=== PATIENT | female | born 1995 | race Caucasian/White ===

== ENCOUNTER 2016-09-21 03:22 | Emergency (ER) | payer SELFPAY ==
[2016-09-21 04:28] LABS: ABSOLUTE BASOPHILS # (AUTO) 0.1 10^3/uL (0.0-0.2); ABSOLUTE EOSINOPHILS # (AUTO) 1.4 10^3/uL (0.0-0.6); ABSOLUTE LYMPHOCYTES (AUTO) 3.1 10^3/uL (0.5-4.7); ABSOLUTE MONOCYTES (AUTO) 0.8 10^3/uL (0.1-1.4); ABSOLUTE NEUT (AUTO) 7.6 10^3/uL (1.7-8.2); BASOPHILS % (AUTO) 0.5 % (0-2); EOSINOPHILS % (AUTO) 10.9 % (0-6); HEMATOCRIT 41.1 % (36.0-47.0); HEMOGLOBIN 13.7 g/dL (12.0-15.5); LYMPHOCYTES % (AUTO) 23.9 % (13-45); MEAN CORPUSCULAR HEMOGLOBIN 26.9 pg (27.0-33.4); MEAN CORPUSCULAR HGB CONC 33.3 g/dL (32.0-36.0); MEAN CORPUSCULAR VOLUME 81 fl (80-97); MONOCYTES % (AUTO) 6.3 % (3-13); RED BLOOD COUNT 5.09 10^6/uL (3.72-5.28); RED CELL DISTRIBUTION WIDTH 13.7 % (11.5-14.0); SEGMENTED NEUTROPHILS % (AUTO) 58.4 % (42-78); WHITE BLOOD COUNT 12.9 10^3/uL (4.0-10.5)
[2016-09-21 04:35] LABS: APPEARANCE,URINE CLOUDY; BILIRUBIN,URINE NEGATIVE (NEGATIVE); GLUCOSE, URINE NEGATIVE (NEGATIVE); KETONES,URINE NEGATIVE (NEGATIVE); LEUKOCYTE ESTERASE,URINE LARGE (NEGATIVE); NITRITE,URINE NEGATIVE (NEGATIVE); PROTEIN,URINE 30 mg/dL (NEGATIVE); UROBILINOGEN,URINE NEGATIVE mg/dL (<2.0)
[2016-09-21 04:37] LABS: ALANINE AMINOTRANSFERASE 35 U/L (5-35); ALBUMIN 4.1 g/dL (3.7-5.6); ALKALINE PHOSPHATASE 87 U/L (50-135); ANION GAP 14 (5-19); ASPARTATE AMINO TRANSFERASE 26 U/L (5-30); BILIRUBIN,DIRECT 0.3 mg/dL (0.0-0.4); BILIRUBIN,TOTAL 0.4 mg/dL (0.2-1.3); BLOOD UREA NITROGEN 17 mg/dL (7-20); CALCIUM 9.8 mg/dL (8.4-10.2); CARBON DIOXIDE 23 mmol/L (22-30); CHLORIDE 108 mmol/L (98-107); CREATININE RESULT 0.93 mg/dL (0.52-1.25); GLUCOSE 90 mg/dL (75-110); POTASSIUM 4.1 mmol/L (3.6-5.0); SODIUM 145.4 mmol/L (137-145); TOTAL PROTEIN 7.1 g/dL (6.3-8.2)
--- NOTE | 2016-09-21 05:36 | ER Document Report ---
ED GI/ - General Chief Complaint: Vaginal Bleeding Stated Complaint: VAGINAL PAIN AND BLEEDING Notes: The patient is a 20-year-old female who presents with 1 day of vaginal bleeding and clots with dysuria. She received her Depo shot one month ago. Her roommate had a miscarriage and she is concerned that she is having a miscarriage. She has not had a positive test yet. She denies nausea , vomiting, current bleeding, fevers, diarrhea or constipation. TRAVEL OUTSIDE OF THE [place] IN LAST 30 DAYS: No - Related Data Allergies/Adverse Reactions: No Known Allergies Allergy (Verified 12/21/15 18:34) Past Medical History - General Information source: Patient Last Menstrual Period: 07-27-16 - Social History Smoking Status: Unknown if Ever Smoked Family History: CAD, DM, Hyperlipidemia, Hypertension, Malignancy Patient has suicidal ideation: No Patient has homicidal ideation: No - Past Medical History Cardiac Medical History: Denies: Hx Congestive Heart Failure, Hx Hypertension, Hx Heart Murmur Pulmonary Medical History: Reports: Hx Asthma Renal/ Medical History: Denies: Hx Peritoneal Dialysis Past Surgical History: Denies: Hx Cardiac Catheterization, Hx Pacemaker, Hx Valve Replacement, Hx Vascular Surgery - Immunizations Immunizations up to date: Yes Hx Diphtheria, Pertussis, Tetanus Vaccination: Yes Review of Systems - Review of Systems Notes: REVIEW OF SYSTEMS: CONSTITUTIONAL: -fevers, -chills EENT: -eye pain, -difficulty swallowing, -nasal congestion CARDIOVASCULAR:-chest pain, -syncope. RESPIRATORY: -cough, -SOB GASTROINTESTINAL: -abdominal pain, -nausea, -vomiting, -diarrhea GENITOURINARY: +dysuria, -hematuria, +vaginal bleeding MUSCULOSKELETAL: -back pain, -neck pain SKIN: -rash or skin lesions. HEMATOLOGIC: -easy bruising or bleeding. LYMPHATIC: -swollen, enlarged glands. NEUROLOGICAL: -altered mental status or loss of consciousness, -headache, - neurologic symptoms PSYCHIATRIC: -anxiety, -depression. ALL OTHER SYSTEMS REVIEWED AND NEGATIVE. Physical Exam - Vital signs Vitals: Temp Pulse Resp BP Pulse Ox 97.8 F 82 22 134/82 H 98 09/21/16 03:34 09/21/16 03:34 09/21/16 03:34 09/21/16 03:34 09/21/16 03:34 - Notes Notes: PHYSICAL EXAMINATION: GENERAL: Well-appearing, well-nourished and in no acute distress. HEAD: Atraumatic, normocephalic. EYES: Pupils equal round and reactive to light, extraocular movements intact, sclera anicteric, conjunctiva are normal. ENT: nares patent, oropharynx clear without exudates. Moist mucous membranes. NECK: Normal range of motion, supple without lymphadenopathy LUNGS: Breath sounds clear to auscultation bilaterally and equal. No wheezes rales or rhonchi. HEART: Regular rate and rhythm without murmurs ABDOMEN: Soft, nontender, normoactive bowel sounds. No guarding, no rebound. No masses appreciated. EXTREMITIES: Normal range of motion, no pitting or edema. No cyanosis. NEUROLOGICAL: Cranial nerves grossly intact. Normal speech, normal gait. Normal sensory, motor, and reflex exams. PSYCH: Normal mood, normal affect. SKIN: Warm, Dry, normal turgor, no rashes or lesions noted. Course - Re-evaluation Re-evalutation: Patient is not . She does have evidence of UTI and we'll treat with Macrobid. No evidence of pyelonephritis and she appears well. Told her to follow-up with her recruiting intern. - Vital Signs Vital signs: Temp Pulse Resp BP Pulse Ox 98 F 84 18 140/77 H 98 09/21/16 05:35 09/21/16 05:35 09/21/16 05:35 09/21/16 05:35 09/21/16 05:35 - Laboratory Result Diagrams: 09/21/16 03:35 09/21/16 03:35 Laboratory results interpreted by me: 09/21/16 09/21/16 09/21/16 03:35 03:35 04:00 WBC 12.9 H MCH 26.9 L Eosinophils % 10.9 H Absolute Eosinophils 1.4 H Sodium 145.4 H Chloride 108 H Urine Protein 30 H Urine Blood LARGE H Ur Leukocyte Esterase LARGE H Discharge - Discharge Clinical Impression: UTI (urinary tract infection) Qualifiers: Urinary tract infection type: site unspecified Hematuria presence: with hematuria Qualified Code(s): N39.0 - Urinary tract infection, site not specified Condition: Good Disposition: HOME, SELF-CARE Additional Instructions: URINARY TRACT INFECTION: Your evaluation indicates that you have a urinary tract infection. This is due to germs growing in the bladder. This is a common problem. This infection usually responds quickly to antibiotics. Your antibiotic should be taken exactly as prescribed. Drink plenty of fluids -- three to four quarts a day. Occasionally, a bladder anesthetic will be prescribed to help stop the feeling of urgency until the antibiotic has a chance to clear the infection. This may cause your urine to be dark orange. Certain urine infections require a culture. If the doctor obtained a culture, the results will be back in two days. You should call to see if a change in treatment is needed. A repeat urinalysis after you finish treatment is often recommended. The physician will let you know if further testing is required. Call the doctor if you develop fever, chills, flank pain, inability to urinate, or blood in the urine. ANTIBIOTIC THERAPY: You have been given an antibiotic prescription. It's important that you take all the medication, unless instructed otherwise by your physician. Failure to complete the entire course can result in relapse of your condition. Common side effects of antibiotics include nausea, intestinal cramping, or diarrhea. Women may develop vaginal yeast infections, and babies can get yeast (thrush) in the mouth following the use of antibiotics. Contact your physician if you develop significant side effects from this medication. Allergy to this antibiotic can result in hives, wheezing, faintness, or itching. If symptoms of allergy occur, stop the medication and call the doctor. NITROFURANTOIN (MACRODANTIN, MACROBID): You have received a prescription for nitrofurantoin (Macrodantin). This antibiotic is used for urinary tract infections. Women who are or nursing should notify the physician before taking this medicine. If you have ever had a problem caused by this medication in the past, be sure the physician is aware of it. Common side effects of this medicine include nausea, vomiting, or decreased appetite. Notify your physician if these side effects become severe. Immediately stop this medicine and call the physician if you develop cough , shortness of breath, chest pain, weakness, jaundice (yellow color of the skin and whites of the eyes), or a skin rash. FOLLOW-UP CARE: If you have been referred to a physician for follow-up care, call the physician s office for an appointment as you were instructed or within the next two days. If you experience worsening or a significant change in your symptoms, notify the physician immediately or return to the Emergency Department at any time for re-evaluation. Prescriptions: Nitrofurantoin/Nitrofuran Mac [Macrobid 100 mg Capsule] 1 tab PO BID #10 capsule Referrals: SAYDA DE JESUS MD [ACTIVE STAFF] - Follow up as needed
[2016-09-21 05:37] VITALS: BP 140/77
== END 2016-09-21 05:41 | disposition home or self-care (01) ==
LOC: ER 03:22
DX: N39.0 Urinary tract infection, site not specified (principal); R31.9 Hematuria, unspecified
CPT/HCPCS: 36415; 80053; 81001; 84703; 85025; 99283

== ENCOUNTER 2017-12-28 17:30 | Emergency (ER) | payer SELFPAY ==
[2017-12-28 17:35] VITALS: BP 131/67
--- NOTE | 2017-12-28 18:02 | ER Document Report ---
HPI - HPI Patient complains to provider of: Twisted left ankle Onset: Yesterday - P.m. Pain Level: 5 Context: 22-year-old drank too much last night and does not remember twisting her left ankle. It hurts the medial and lateral list. She can move it though. No previous injury. Associated Symptoms: None Exacerbated by: Movement, Walking Relieved by: Denies Similar symptoms previously: No Recently seen / treated by doctor: No - ROS ROS below otherwise negative: Yes Systems Reviewed and Negative: Yes All other systems reviewed and negative - REPRODUCTIVE Reproductive: DENIES: : - MUSCULOSKELETAL Musculoskeletal: REPORTS: Extremity pain Past Medical History - General Information source: Patient - Social History Smoking Status: Never Smoker Frequency of alcohol use: None Drug Abuse: None Lives with: Family Family History: CAD, DM, Hyperlipidemia, Hypertension, Malignancy Patient has suicidal ideation: No Patient has homicidal ideation: No Pulmonary Medical History: Reports: Hx Asthma Surgical Hx: Negative - Immunizations Immunizations up to date: Yes Hx Diphtheria, Pertussis, Tetanus Vaccination: Yes Vertical Provider Document - CONSTITUTIONAL Agree With Documented VS: Yes Exam Limitations: No Limitations - INFECTION CONTROL TRAVEL OUTSIDE OF THE [place] IN LAST 30 DAYS: No - MUSCULOSKELETAL/EXTREMETIES Musculoskeletal/Extremeties: MAEW, FROM, Tender - Medial and lateral malleolus, Edema Notes: 2+ DP - NEURO Level of Consciousness: Alert Motor/Sensory: No Motor Deficit, No Sensory Deficit - DERM Integumentary: No Rash Course - Re-evaluation Re-evalutation: 12/28/17 18:43 X-rays negative per radiologist, Velcro ankle splint and crutches. I will treat with Tylenol Motrin orthopedic follow-up if she needs it. - Vital Signs Vital signs: Temp Pulse Resp BP Pulse Ox 98.1 F 81 18 131/67 H 99 12/28/17 17:34 12/28/17 17:34 12/28/17 17:34 12/28/17 17:34 12/28/17 17:34 Procedures - Immobilization Left Ankle Time completed: 18:46 Pre-Proc Neuro Vasc Exam: Normal Immobilizer type: Ankle stirrup, Crutches Performed by: PCT Post-Proc Neuro Vasc Exam: Normal Alignment checked and good: Yes Discharge - Discharge Clinical Impression: Left ankle sprain Qualifiers: Encounter type: initial encounter Involved ligament of ankle: unspecified ligament Qualified Code(s): S93.402A - Sprain of unspecified ligament of left ankle, initial encounter Condition: Good Disposition: HOME, SELF-CARE Instructions: Sprained Ankle ([facility]), Ice Packs ([facility]), Ankle Stirrup Splint ([facility]) , Use of Crutches ([facility]), Acetaminophen, Ibuprofen (General) ([facility]) Additional Instructions: Ice and elevate Splint with a secure sneaker Crutches for nonweightbearing for several days Copy of negative imaging report given to you Follow-up with orthopedics if he continued to have a problem with his ankle Prescriptions: Ibuprofen [Motrin 600 mg Tablet] 600 mg PO Q8HP PRN #30 tablet PRN Reason: Referrals: LOLLY FELDER MD [ACTIVE STAFF] - Follow up as needed
--- NOTE | 2017-12-28 18:34 | RADIOLOGY REPORT (SQ) ---
EXAM DESCRIPTION: ANKLE LEFT COMPLETE COMPLETED DATE/TIME: 12/28/2017 6:26 pm REASON FOR STUDY: injured last night COMPARISON: None. NUMBER OF VIEWS: Three views. TECHNIQUE: AP, lateral, and oblique radiographic images acquired of the left ankle. LIMITATIONS: None. FINDINGS: MINERALIZATION: Normal. BONES: No acute fracture or dislocation. No worrisome bone lesions. JOINTS: No effusions. SOFT TISSUES: Mild lateral soft tissue swelling. OTHER: No other significant finding. IMPRESSION: Mild soft tissue swelling. No fracture. TECHNICAL DOCUMENTATION: JOB ID: [id number] [employer]- All Rights Reserved Reading location - IP/workstation name: [email or web address]
== END 2017-12-28 19:02 | disposition home or self-care (01) ==
LOC: ER 17:30
DX: S93.402A Sprain of unspecified ligament of left ankle, initial encounter (principal); X58.XXXA Exposure to other specified factors, initial encounter; J45.909 Unspecified asthma, uncomplicated
CPT/HCPCS: 99283; 73610; L1902

== ENCOUNTER 2018-06-14 17:12 | Emergency (ER) | payer SELFPAY ==
[2018-06-14] MEDS ORDERED: PSEUDOEPHEDRINE HCL 30 MG TABLET PO ONE (18:23)
[2018-06-14] MEDS ORDERED: IBUPROFEN 800 MG TABLET PO ONE (18:24)
--- NOTE | 2018-06-14 18:32 | ER Document Report ---
HPI - HPI Time Seen by Provider: 06/14/18 18:00 Onset/Duration: Gradual, Persistent Quality of pain: Achy Pain Level: 5 Context: Patient presents complaining of cough, sore throat and congestion for the past 3 days. Patient denies any fever. Patient denies any recent sick contacts. Patient complains of sinus pressure and congestion Associated Symptoms: Nonproductive cough, Rhinnorhea, Sinus pain/drainage, Sore throat. denies: Earache, Fever Exacerbated by: Denies Relieved by: Denies Similar symptoms previously: Yes Recently seen / treated by doctor: No - ROS ROS below otherwise negative: Yes Systems Reviewed and Negative: Yes All other systems reviewed and negative - CONSTITUTIONAL Constitutional: DENIES: Chills - EENT EENT: REPORTS: Sore Throat, Nasal Drainage-Clear, Congestion - NEURO Neurology: REPORTS: Headache - RESPIRATORY Respiratory: REPORTS: Coughing - GASTROINTESTINAL Gastrointestinal: DENIES: Patient vomiting - REPRODUCTIVE Reproductive: DENIES: : - MUSCULOSKELETAL Musculoskeletal: DENIES: Back Pain, Neck Pain - DERM Skin Color: Normal Skin Problems: None Past Medical History - General Information source: Patient - Social History Smoking Status: Former Smoker Chew tobacco use (# tins/day): No Frequency of alcohol use: None Drug Abuse: None Occupation: Retail Lives with: Spouse/Significant other Family History: CAD, DM, Hyperlipidemia, Hypertension, Malignancy Patient has suicidal ideation: No Patient has homicidal ideation: No - Past Medical History Cardiac Medical History: Denies: Hx Congestive Heart Failure, Hx Hypertension, Hx Heart Murmur Pulmonary Medical History: Reports: Hx Asthma - proair Renal/ Medical History: Denies: Hx Peritoneal Dialysis Surgical Hx: Negative - Immunizations Immunizations up to date: Yes Hx Diphtheria, Pertussis, Tetanus Vaccination: Yes Vertical Provider Document - CONSTITUTIONAL Agree With Documented VS: Yes Exam Limitations: No Limitations General Appearance: WD/WN, No Apparent Distress - INFECTION CONTROL TRAVEL OUTSIDE OF THE [place] IN LAST 30 DAYS: No - HEENT HEENT: Atraumatic, Normocephalic, Pharyngeal Tenderness, Pharyngeal Erythema. negative: Pharyngeal Exudate, Tympanic Membrane Red, Tympanic Membrane Bulging Notes: Maxillary and frontal sinus pressure, no facial swelling - NECK Neck: Normal Inspection, Supple. negative: Lymphadenopathy-Left, Lymphadenopathy-Right - RESPIRATORY Respiratory: Breath Sounds Normal, No Respiratory Distress, Chest Non-Tender - CARDIOVASCULAR Cardiovascular: Regular Rate, Regular Rhythm, No Murmur - BACK Back: Normal Inspection - MUSCULOSKELETAL/EXTREMETIES Musculoskeletal/Extremeties: PASHA BARBOZA - NEURO Level of Consciousness: Awake, Alert, Appropriate Motor/Sensory: No Motor Deficit - DERM Integumentary: Warm, Dry, No Rash Course - Vital Signs Vital signs: Temp Pulse Resp BP Pulse Ox 98.4 F 98 16 130/75 H 97 06/14/18 17:21 06/14/18 17:21 06/14/18 17:21 06/14/18 17:21 06/14/18 17:21 - Laboratory Laboratory results interpreted by me: 06/14/18 20:37 Labs- Entire Visit 06/14/18 18:28 Group A Strep Rapid NEGATIVE Discharge - Discharge Clinical Impression: Sinus congestion, Sore throat Upper respiratory infection Qualifiers: URI type: unspecified URI Qualified Code(s): J06.9 - Acute upper respiratory infection, unspecified Condition: Stable Disposition: HOME, SELF-CARE Instructions: Upper Respiratory Illness ([facility]) Additional Instructions: Return immediately for any new or worsening symptoms Followup with your primary care provider, call tomorrow to make a followup appointment Use saline nasal spray or rfcn-nab-hfdcsyx sinus irrigation kit such as a [place] pot as directed. Be sure to use distilled water. Prescriptions: Fluticasone Propionate [Flonase Nasal [place] 50 Mcg/[place] 16 gm] 2 spray NASL DAILY #1 bottle Guaifenesin/Pseudoephedrne HCl [Mucinex D ER Tablet] 1 each PO Q12 PRN #12 tab.er.12h PRN Reason: Naproxen [Naprosyn 250 Nmg Tablet] 1 tab PO BID #14 tablet Forms: Return to Work [facility] [[facility]] - Follow up as needed
[2018-06-14 19:32] VITALS: BP 128/72
== END 2018-06-14 19:32 | disposition home or self-care (01) ==
LOC: ER 17:12
DX: J06.9 Acute upper respiratory infection, unspecified (principal); J02.9 Acute pharyngitis, unspecified; R09.81 Nasal congestion; R05 Cough; J34.89 Other specified disorders of nose and nasal sinuses; Z87.891 Personal history of nicotine dependence; J45.909 Unspecified asthma, uncomplicated
CPT/HCPCS: 87070; 87880; 99283

== ENCOUNTER 2018-10-05 04:26 | Emergency (ER) | payer OTHER ==
[2018-10-05] MEDS ORDERED: IPRATROPIUM/ALBUTEROL 0.5-2.5 MG/3 ML AMPUL NEB ONE ×2 (04:35→05:13)
[2018-10-05] MEDS ORDERED: PREDNISONE 20 MG TABLET PO ONE (05:13)
--- NOTE | 2018-10-05 05:14 | ER Document Report ---
ED Medical Screen (RME) - General Chief Complaint: Shortness Of Breath Stated Complaint: DIFFICULTY BREATHING Time Seen by Provider: 10/05/18 05:13 Primary Care Provider: PABLO TATE MD [Primary Care Provider] - Follow up as needed Notes: 22-year-old female with a history of asthma, chief complaint of wheezing and shortness of breath since yesterday. Denies fever/chills. Home albuterol not working. Has received 1 DuoNeb in triage already with significant improvement. TRAVEL OUTSIDE OF THE [place] IN LAST 30 DAYS: No - Related Data Allergies/Adverse Reactions: No Known Allergies Allergy (Verified 06/14/18 17:13) Past Medical History - Past Medical History Cardiac Medical History: Denies: Hx Congestive Heart Failure, Hx Hypertension, Hx Heart Murmur Pulmonary Medical History: Reports: Hx Asthma - proair Renal/ Medical History: Denies: Hx Peritoneal Dialysis Past Surgical History: Denies: Hx Cardiac Catheterization, Hx Pacemaker, Hx Valve Replacement, Hx Vascular Surgery - Immunizations Immunizations up to date: Yes Hx Diphtheria, Pertussis, Tetanus Vaccination: Yes Physical Exam - Vital signs Vitals: Temp Pulse Resp BP Pulse Ox 97.9 F 84 22 H 141/81 H 96 10/05/18 04:33 10/05/18 04:33 10/05/18 04:33 10/05/18 04:33 10/05/18 04:33 - Respiratory Breath sounds: Wheezing - Expiratory wheezes which are mild throughout. No tachypnea. Course - Re-evaluation Re-evalutation: Patient still has some mild expiratory wheezes after initial DuoNeb but is reporting feeling much better. No distress or hypoxia. No sick symptoms suggesting pneumonia. I have greeted and performed a rapid initial assessment of this patient. A comprehensive ED assessment and evaluation of the patient, analysis of test results and completion of the medical decision making process will be conducted by additional ED providers. - Vital Signs Vital signs: Temp Pulse Resp BP Pulse Ox 97.9 F 84 22 H 141/81 H 96 10/05/18 04:33 10/05/18 04:33 10/05/18 04:33 10/05/18 04:33 10/05/18 04:33 Doctor's Discharge - Discharge Referrals: PABLO TATE MD [Primary Care Provider] - Follow up as needed
--- NOTE | 2018-10-05 07:05 | ER Document Report ---
ED General - General Chief Complaint: Shortness Of Breath Stated Complaint: DIFFICULTY BREATHING Time Seen by Provider: 10/05/18 05:13 Primary Care Provider: PABLO TATE MD [Primary Care Provider] - Follow up as needed TRAVEL OUTSIDE OF THE [place] IN LAST 30 DAYS: No - HPI Notes: Patient is a 22-year-old female that presents to the emergency department for chief complaint of asthma exacerbation. Patient reports acute onset of asthma that began yesterday. She used her albuterol nebulizer once yesterday evening and once this morning. She states she does not currently have an albuterol MDI. She reports her asthma is mild intermittent and she is only required admission to the hospital when she was 9 years old. She states that she believes her trigger was going to altitude yesterday. She currently is feeling better after receiving DuoNeb and prednisone in triage. She denies any associated chest pain fevers or chills. Past Medical History: Asthma Past Surgical History: Negative Social History: Denies drugs alcohol and tobacco Family History: Reviewed and noncontributory for presenting illness Allergies: Reviewed, see documented allergy list. REVIEW OF SYSTEMS: CONSTITUTIONAL : No fever No chills No diaphoresis No recent illness EENT: No vision changes No congestion No sore throat CARDIOVASCULAR: No chest pain No palpitations RESPIRATORY: shortness of breath cough difficulty breathing GASTROINTESTINAL: No abdominal pain No nausea No vomiting No diarrhea GENITOURINARY: No dysuria No hematuria No difficulty urinating MUSCULOSKELETAL: No back pain No leg pain No arm pain SKIN: No rashes No lesions LYMPHATIC: No swollen, enlarged glands. NEUROLOGICAL: No lightheadedness No headache No weakness No paresthesias PSYCHIATRIC: No anxiety No depression PHYSICAL EXAMINATION: Vital signs reviewed, nursing noted reviewed. GENERAL: Well-appearing, well-nourished and in no acute distress. HEAD: Atraumatic, normocephalic. EYES: Eyes appear normal, extraocular movements intact, sclera anicteric, conjunctiva are normal. ENT: nares patent, oropharynx clear without exudates. Moist mucous membranes. NECK: Normal range of motion, supple without lymphadenopathy LUNGS: Breath sounds clear to auscultation bilaterally and equal. No wheezes rales or rhonchi. HEART: Regular rate and rhythm without murmurs ABDOMEN: Soft, nontender, normoactive bowel sounds. No rebound, guarding, or rigidity. No masses appreciated. EXTREMITIES: Nontender, good range of motion, no pitting or edema. NEUROLOGICAL: No focal neurological deficits. Moves all extremities spontaneously Motor and sensory grossly intact on exam. PSYCH: Normal mood, normal affect. SKIN: Warm, Dry, normal turgor, no rashes or lesions noted on exposed skin - Related Data Allergies/Adverse Reactions: No Known Allergies Allergy (Verified 06/14/18 17:13) Past Medical History - Social History Smoking Status: Unknown if Ever Smoked Family History: CAD, DM, Hyperlipidemia, Hypertension, Malignancy Patient has suicidal ideation: No Patient has homicidal ideation: No - Past Medical History Cardiac Medical History: Denies: Hx Congestive Heart Failure, Hx Hypertension, Hx Heart Murmur Pulmonary Medical History: Reports: Hx Asthma - proair Renal/ Medical History: Denies: Hx Peritoneal Dialysis Past Surgical History: Denies: Hx Cardiac Catheterization, Hx Pacemaker, Hx Valve Replacement, Hx Vascular Surgery - Immunizations Immunizations up to date: Yes Hx Diphtheria, Pertussis, Tetanus Vaccination: Yes Physical Exam - Vital signs Vitals: Temp Pulse Resp BP Pulse Ox 97.9 F 84 22 H 141/81 H 96 10/05/18 04:33 10/05/18 04:33 10/05/18 04:33 10/05/18 04:33 10/05/18 04:33 Course - Re-evaluation Re-evalutation: 10/05/18 07:07 Vitals reviewed. Nursing notes reviewed. Patient had 2 DuoNeb's and 60 mg of prednisone prior to my evaluation. Her lung sounds to auscultation for me are clear. She is speaking in full sentences and oxygenating well on room air. She is in no acute respiratory distress. Patient will be given a refill of her albuterol inhaler. I did write her for prednisone but since she has only used 2 breathing treatments at home prior to coming in and is currently in no re spiratory distress I did tell her that if she wanted to hold off on getting the prednisone filled until tomorrow to see how she is feeling after treatments today that that was appropriate. Patient will follow with her PCP for close outpatient reevaluation. She will return for new or worsening symptoms. She is stable at discharge. - Vital Signs Vital signs: Temp Pulse Resp BP Pulse Ox 97.9 F 84 22 H 141/81 H 96 10/05/18 04:33 10/05/18 04:33 10/05/18 04:33 10/05/18 04:33 10/05/18 04:33 Discharge - Discharge Clinical Impression: Asthma Qualifiers: Asthma severity: mild Asthma persistence: intermittent Asthma complication type: with acute exacerbation Qualified Code(s): J45.21 - Mild intermittent asthma with (acute) exacerbation Condition: Stable Disposition: HOME, SELF-CARE Instructions: Asthma ([facility]) Additional Instructions: Please return to the emergency department if you have any worsening, or concern of your symptoms. Please return to the emergency department if you develop chest pain, difficulty breathing, severe abdominal pain, or ongoing vomiting. Please follow-up with your primary care physician in 2-3 days and any other recommended physicians. If prescribed, take all medications as directed. If you have any questions or concerns do not hesitate to return the emergency department for evaluation. Use your albuterol inhaler or nebulized albuterol every 4 hours today and then decrease to as needed after 24 hours. If you are using your albuterol inhaler every 4 hours and still feel short of breath fill the prednisone prescription and begin taking it on 10/06/2018 Prescriptions: Albuterol Sulfate [Proair HFA Inhalation Aerosol 8.5 gm MDI] 2 puff IH Q4H PRN #1 mdi PRN Reason: Wheezing Prednisone [Deltasone 20 mg Tablet] 2 tab PO DAILY 4 Days tablet Referrals: PABLO TATE MD [Primary Care Provider] - Follow up in 3-5 days
[2018-10-05 07:27] VITALS: BP 123/73
== END 2018-10-05 07:27 | disposition home or self-care (01) ==
LOC: ER 04:26
DX: J45.21 Mild intermittent asthma with (acute) exacerbation (principal)
CPT/HCPCS: 94640 ×2; 99284; J7512; J7620